=== PATIENT | female | born 1980 | race Caucasian/White ===

== ENCOUNTER 2018-06-29 09:20 | Emergency (ER) | payer OTHER ==
[~2018-06-29] VITALS: Ht 162.6 cm; Wt 96.3 kg
--- NOTE | 2018-06-29 09:34 | NUR ---
PT TO ROOM FROM LOBBY
--- NOTE | 2018-06-29 09:55 | NUR ---
37 Y/O FEMALE PRESENTS TO ED WITH C/O HEART PALPATATIONS. PT STATES "I'VE HAD PALPATATIONS FOR A WHILE. THEY COME AND GO. MY DR IS AWARE OF THEM. BUT THIS WEEK THEY STARTED MONDAY, WENT AWAY. MONDAY I HAD A FEW MORE. THEN THEY STARTED BACK UP TODAY. BEFORE WHEN I HAPPENED I ATE SOME CANDY AND IT HELPED. I TRIED THAT THIS MORNING." NO ACUTE DISTRESS NOTED. BEDSIDE. NO C/O N/V/D, TRAUMA, SYNCOPE, SOB. 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
[2018-06-29] MEDS ORDERED: ASPIRIN 81 MG TABLET CHEW PO ONE (10:00)
[2018-06-29] MEDS ORDERED: ASPIRIN 81 MG TABLET CHEW ONE (10:28)
[2018-06-29 10:33] LABS: BASOPHILS # (AUTO) 0.05 x10^3/uL (0-0.1); BASOPHILS % (AUTO) 1 % (0-1); EOSINOPHILS # (AUTO) 0.64 x10^3/uL (0-0.4); EOSINOPHILS % (AUTO) 7 % (1-7); LYMPHOCYTES # (AUTO) 1.89 x10^3/uL (1-3.4); LYMPHOCYTES % (AUTO) 19 % (22-44); MD NO; MEAN CORPUSCULAR HEMOGLOBIN 31.1 pg (27.0-34.8); MEAN CORPUSCULAR HGB CONC 34.1 g/dL (32.4-35.8); MEAN CORPUSCULAR VOLUME 91.1 fL (80-100); MEAN PLATELET VOLUME 8.4 fL (7.4-10.4); MONOCYTES # (AUTO) 0.63 x10^3/uL (0.2-0.8); MONOCYTES % (AUTO) 7 % (2-9); NEUTROPHILS # (AUTO) 6.53 x10^3/uL (1.8-6.8); NEUTROPHILS % (AUTO) 67 % (42-75); PLATELET COUNT 291 x10^3/uL (130-400)
--- NOTE | 2018-06-29 10:33 | NUR ---
PT RESTING ON [employer] PLAYING ON CELL PHONE. NO ACUTE DISTRESS NOTED. NO NEEDS REQUESTED AT THIS TIME. BEDSIDE.
[2018-06-29 10:46] LABS: ALBUMIN 3.8 g/dL (3.4-5.0); ANION GAP 6 mmol/L (5-15); CALCIUM 8.9 mg/dL (8.5-10.1); CHLORIDE 107 mmol/L (98-107); CREATININE 0.85 mg/dL (0.55-1.02)
[2018-06-29 10:50] LABS: FREE T4 (FREE THYROXINE) 1.15 ng/dL (0.76-1.46); TROPONIN I < 0.015 ng/mL (0.000-0.045)
--- NOTE | 2018-06-29 11:05 | NUR ---
PT AMBULATORY WITH STEADY GAIT TO BATHROOM.
[2018-06-29 11:46] VITALS: BP 113/78
--- NOTE | 2018-06-29 11:46 | NUR ---
Patient/Caregiver given discharge instructions and they have confirmed that they understand the instructions. Patient ambulatory with steady gait. PT LEFT WITH ALL PERSONAL BELONGINGS.
== END 2018-06-29 11:59 | disposition home or self-care (01) ==
LOC: ED 10:03
DX: I49.3 Ventricular premature depolarization (principal); R00.2 Palpitations; R07.89 Other chest pain; E03.9 Hypothyroidism, unspecified; J45.909 Unspecified asthma, uncomplicated
CPT/HCPCS: 36415; 71045; 80048; 82040; 83735; 83880; 84439; 84443; 84484; 85025; 85379; 93005; 99284

== ENCOUNTER → 2018-08-03 | Outpatient (CLI) | payer OTHER | END | disposition home or self-care (01) | LOC: CFH 08:39 | PROVIDERS: ATTEND Internal Medicine Cardiovascular Disease | DX: I49.3 Ventricular premature depolarization (principal); R00.2 Palpitations | CPT/HCPCS: 93306 ==